=== PATIENT | female | born 1985 | race Caucasian/White ===

== ENCOUNTER 2023-03-03 15:04 | Emergency (ER) | payer BC, SELFPAY ==
--- NOTE | ~2023-03-03 | XR_ITS ---
EXAMINATION: XR chest 2V DATE: 03/03/2023 15:41 INDICATION: Heart palpitations TECHNIQUE: PA and lateral views of the chest were obtained. COMPARISON: None FINDINGS: The lungs are clear with no focal airspace opacities, pulmonary edema, pleural effusion or pneumothor ax. The cardiomediastinal silhouette is normal. Visualized bones and soft tissues are unremarkable. IMPRESSION: 1. Normal chest radiograph. Reviewed, dictated and finalized at location A. IMPRESSION: 1. Normal chest radiograph.
[2023-03-03 15:15] VITALS: BP 154/83; PULSE 95; RESP 16; TEMP 36.4; O2SAT 100
--- NOTE | 2023-03-03 15:20 | ECG_ITS ---
Measurements Intervals [place] Rate: 105 P: 24 NH: 150 QRS: 55 QRSD: 88 T: -8 QT: 345 QTc: 458 Interpretive Statements SINUS TACHYCARDIA WITH OCCASIONAL VENTRICULAR PREMATURE COMPLEXES POSSIBLE LEFT ATRIAL ENLARGEMENT [-0.1mV P WAVE IN V1/V2] LOW QRS VOLTAGE IN PRECORDIAL LEADS [QRS DEFLECTION < 1.0 mV IN CHEST LEADS] POSSIBLE RIGHT VENTRICULAR CONDUCTION DELAY [RSR (QR) IN V1/V2] ST DEVIATION AND MODERATE T-WAVE ABNORMALITY, CONSIDER ANTERIOR ISCHEMIA [-0.1+ mV T WAVE IN V3/V4] ABNORMAL ECG NO PREVIOUS ECG AVAILABLE FOR COMPARISON Electronically Signed On 03-04-2023 11:52:53 CDT by Jered Tamayo M.D.
[2023-03-03 15:44] LABS: Basophils Percent Auto 0.3 % (0.2-1.2); Eosinophils Absolute Auto 0.1 K/mm3 (0-0.3); Eosinophils Percent Auto 0.4 % (0-4.4); Hemoglobin 15.3 g/dL (12.0-15.0); Immature Granulocyte Absolute 0.05 K/mm3 (0.00-0.031); Immature Granulocyte Percent A 0.4 % (0-0.5); Lymphocytes Absolute Auto 1.77 K/mm3 (0.9-3.2); Lymphocytes Percent Auto 15.4 % (18.3-44.2); Mean Corpuscular Hemoglobin 30.8 pg (26-34); Mean Corpuscular Volume 90.7 fl (80-100); Mean Platelet Volume 9.9 fl (7.4-10.4); Monocytes Absolute Auto 0.6 K/mm3 (0.1-0.6); Monocytes Percent Auto 4.9 % (2.6-8.5); Neutrophils Absolute Auto 9.1 K/mm3 (1.3-6.7); Neutrophils Percent Auto 78.6 % (45.5-73.1); Platelet Count Result 337 k/mm3 (150-375); Red Blood Count 4.96 M/mm3 (4.2-5.4); White Blood Count 11.5 K/mm3 (4.5-10.0)
[2023-03-03 15:47] LABS: Alanine Aminotransferase 41 U/L (6-35); Albumin Level 4.9 g/dL (3.5-5.1); Alkaline Phosphatase 85 U/L (38-126); Anion Gap 9 mmol/L (8-16); Aspartate Amino Transferase 39 U/L (14-36); Bilirubin,Total 0.4 mg/dL (0.2-1.3); Blood Urea Nitrogen 11 mg/dL (7-17); Calcium 9.8 mg/dL (8.4-10.2); Carbon Dioxide 28 mmol/L (22-30); Chloride 102 mmol/L (98-107); Estimated CRCL calculation 115 ml/min; Estimated Glomerular Filt Rate > 60; Glucose 108 mg/dL (65-110); Lipase 101 U/L (23-300); Potassium 3.5 mmol/L (3.4-5.0); Sodium 139 mmol/L (137-145)
[2023-03-03 15:57] LABS: Troponin I < 0.012 ng/mL (0.000-0.034)
[2023-03-03 16:03] LABS: INR 0.9; Prothrombin Time 12.7 Seconds (11.1-14.7)
[2023-03-03 16:04] LABS: Partial Thromboplastin Time 30.7 SECONDS (22.3-36.8)
[2023-03-03 16:26] VITALS: BP 128/91; PULSE 83; PULSE 90; RESP 13; O2SAT 100
[2023-03-03 17:31] LABS: Magnesium 2.1 mg/dL (1.6-2.3)
--- NOTE | 2023-03-03 17:40 | ED.GENADULT ---
HPI - General Adult General Chief complaint: Arrhythmia/Palpitations Stated complaint: heart palpitations Time Seen by Provider: 03/03/23 16:41 History of Present Illness HPI narrative: 38-year-old female presented to the emergency department for evaluation of intermittent heart palpitations. Patient reports he does have a prior history of PVCs when she was evaluated by physician back in [place]. Patient states over the course of the last few days they have been having more frequently. She states that when she does exert herself she is unable to sense the PVCs. Patient denies any associated chest pain with this. Patient states she has decreased her caffeine and alcohol intake. Related Data Home Medications Medication Instructions Recorded Confirmed No Home Medications 03/03/23 03/03/23 Allergies Allergy/AdvReac Type Severity Reaction Status Date / Time Penicillins Allergy Unknown Verified 03/03/23 16:28 oxycodone AdvReac Itching Verified 03/03/23 16:28 prednisolone AdvReac Anxiety Verified 03/03/23 16:28 Review of Systems Review of Systems: All systems reviewed & are unremarkable except as noted in HPI and below Exam Narrative: APPEARANCE: Well appearing, no pain, no distress, well-nourished. HEAD: normocephalic, atraumatic. EYES: PERRLA/EOMI, conjunctivae clear. NOSE: Normal no drainage NECK: Supple. No adenopathy, no masses. RESPIRATORY: Airway patent, respirations nonlabored. Clear to auscultation bilaterally, no rales, rhonchi, wheezing. CARDIOVASCULAR: Regular rate and rhythm without murmurs rubs or gallops. ABDOMINAL: Soft, nontender, nondistended, normal bowel sounds MUSCULOSKELETAL: Moves all extremities. Strength/ROM intact, No edema, No calf tenderness. NEURO: Alert. Cranial nerves II through XII intact. Grossly intact SKIN: Warm, dry. Normal Color PSYCHIATRIC: Normal affect/mood. Course Course Emergency Course: 38-year-old female present emerged department for evaluation of heart palpitations. Patient had normal sinus rhythm in the ED. Patient does have intermittent PVCs but no runs of bigeminy or trigeminy. Patient is afebrile with a leukocytosis 11.5. Patient hemoglobin is 15.3. Patient had a CMP that had no significant abnormalities. Patient negative serial troponins and had normal TSH and mag. Chest x-ray showed no acute cardiopulmonary abnormality. Patient had negative serial troponins. Patient's TSH within normal limits. EKG showed sinus tach with occasional PVCs. Patient's sinus tach was resolved in the ED. Patient was updated the results of her work-up. Patient was encouraged of close follow-up with her primary care physician. Vital Signs Vital signs: Vital Signs Temperature 97.5 F L 03/03/23 15:15 Pulse Rate 95 03/03/23 15:15 Respiratory Rate 16 03/03/23 15:15 Blood Pressure 154/83 H 03/03/23 15:15 Pulse Oximetry 100 03/03/23 15:15 Temperature 97.5 F L 03/03/23 15:15 Pulse Rate 72 03/03/23 18:56 Respiratory Rate 18 03/03/23 18:56 Blood Pressure 107/71 03/03/23 18:56 Pulse Oximetry 99 03/03/23 18:56 Medical Decision Making Vital Signs Vital Signs: Vital Signs Temperature 97.5 F L 03/03/23 15:15 Pulse Rate 95 03/03/23 15:15 Respiratory Rate 16 03/03/23 15:15 Blood Pressure 154/83 H 03/03/23 15:15 Pulse Oximetry 100 03/03/23 15:15 Temperature 97.5 F L 03/03/23 15:15 Pulse Rate 72 03/03/23 18:56 Respiratory Rate 18 03/03/23 18:56 Blood Pressure 107/71 03/03/23 18:56 Pulse Oximetry 99 03/03/23 18:56 Lab Data 03/03/23 15:31 03/03/23 15:31 Labs: Lab Results 03/03/23 03/03/23 03/03/23 Range/Units 15:31 17:37 18:22 WBC 11.5 H (4.5-10.0) K/mm3 RBC 4.96 (4.2-5.4) M/mm3 Hgb 15.3 H (12.0-15.0) g/dL Hct 45.0 (37.0-47.0) % MCV 90.7 (80-100) fl MCH 30.8 (26-34) pg MCHC 34.0 (32-36) g/dl RDW 12.0 (11.5-14.5) % Pl
[2023-03-03 18:38] LABS: Thyroid Stimulating Hormone Reflex 0.731 uIU/mL (0.465-4.68)
[2023-03-03 18:52] LABS: Troponin I < 0.012 ng/mL (0.000-0.034)
[2023-03-03 18:56] VITALS: BP 107/71; PULSE 72; RESP 18; O2SAT 99
--- NOTE | 2023-03-03 19:29 | PC.NURSE ---
This RN assumed care of patient.
== END 2023-03-03 20:11 | disposition home or self-care (01) ==
PROVIDERS: Emergency Provider Emergency Medicine; PCP Internal Medicine
DX: R00.2 Palpitations (principal)
CPT/HCPCS: 36415; 71046; 80053; 83690; 83735; 84443; 84484; 85025; 85610; 85730; 93005; 99284